=== PATIENT | female | born 1935 | race Caucasian/White ===

== ENCOUNTER 2016-11-22 20:45 | Emergency (ER) | payer MEDICARE ==
[~2016-11-22 20:45] MED LIST: ACIPHEX20 MG; ADVAIR 1001 DISK W/D; ALBUTEROL0.83 MG/ML; ALBUTEROL17 GM; ALBUTEROL17 GM INH; ANTIBIOTIC; ATACAND4 MG; ATARAX10 MG PO; ATIVAN0.5 MG PO; AUGMENTIN 875-11 TAB PO; CALCIUM + D T1 UDTAB PO; CALCIUM 600 MG1 EACH PO; CALCIUM 600 W/V1 TAB; CARDIZEM CD180 MG; CARDIZEM CD180 MG PO; CARDIZEM120 MG; CARDIZEM120 MG PO; COMBIVENT1 PUFF INH; COUMADIN2.5 MG; COUMADIN2.5 MG PO; COUMADIN5 M1 PO; COUMADIN5 MG; COUMADIN5 MG PO; DUONEB 2.5-0.5 M3 ML; ENALAPRIL MALEA10 MG; ENOXAPARIN; FORADIL12 MCG; FOSAMAX70 MG; FOSAMAX70 MG PO; MACROBID 100 M100 MG PO; MILK OF MA400 MG/5 M PO; MUCINEX600 MG PO; NASONEX17 GM; OMEPRAZOLE20 MG PO; OMNICEF300 MG PO; PAXIL10 MG; PAXIL20 MG PO; PAXIL30 MG PO; PAXIL40 MG PO; PHENERGAN W/CO120 ML PO; PREDNISONE1 MG; PREDNISONE10 MG; PREDNISONE10 MG PO; PREDNISONE5 MG; PRILOSEC20 MG PO; SPIRIVA18 MCG; SUDAFED60 MG/TAB PO; SYMBICORT 160-4.6 GM IH; SYMBICORT 80/10.2 GM IH; TOPROL XL25 MG; TRIMETHOPRIM100 MG PO; TYLENOL EXTRA500 MG; TYLENOL W/CODEI1 TA; TYLENOL W/CODEI1 TAB; TYLENOL325 MG PO; VITAMIN C1000 MG; XANAX0.5 MG PO; XOPENEX0.31 MG/3; ZOFRAN4 M1 PO; ZOFRAN4 MG PO
[2016-11-22 22:05] LABS: BASO % 0.6 % (0-2); BASO ABSOLUTE COUNT 0.1 tho/cmm (0.0-0.2); EOS % 2.7 % (0-7); EOSINOPHIL ABSOLUTE COUNT 0.2 tho/cmm (0.0-0.7); HCT-HEMATOCRIT 40.8 % (34.0-49.0); HGB-HEMOGLOBIN 13.6 gm/dl (12.0-15.5); IMMATURE GRANULOCYTES ABSOLUTE 0.01 tho/cmm (0-0.03); IMMATURE GRANULOCYTES PERCENT 0.1 % (0-0.3); LYMPH % 27.2 % (20-45); LYMPH ABSOLUTE COUNT 2.2 tho/cmm (0.8-4.5); MCH (MEAN CORPUSCULAR HGB) 29.2 pg (28.0-32.0); MCHC MEAN CORPUSCULAR HGB CONC 33.3 % (32.0-36.0); MCV (MEAN CELL VOLUME) 87.7 fl (82.0-96.0); MEAN PLATELET VOLUME 8.8 cmc (9.4-12.4); MONO % 8.2 % (0-12); MONOCYTE ABSOLUTE COUNT 0.7 tho/cmm (0.0-1.2); NEUTROPHIL ABSOLUTE COUNT 4.9 tho/cmm (1.6-8.0); NEUTROPHIL-AUTOMATED 4.9 tho/cmm (1.6-8.0); NEUTROPHILS % 61.2 % (40-80); PLATELET COUNT 327 tho/cmm (150-450); RED BLOOD COUNT 4.65 mil/cmm (4.00-5.20); RED CELL DISTRIBUTION WIDTH 15.1 % (12.4-16.4); WHITE BLOOD COUNT 8.1 tho/cmm (4.0-10.0)
[2016-11-22 22:13] LABS: INR 5.6 INR (0.9-1.1)
[2016-11-22 22:18] LABS: ALB/GLOB RATIO 0.8 (0.8-2.0); ALBUMIN 3.3 g/dl (3.5-5.0); ALKALINE PHOSPHATASE 82 U/L (33-138); ALT/SGPT 34 U/L (12-78); ANION GAP 10 mmol/L (0-20); AST/SGOT 32 U/L (10-40); BILIRUBIN,TOTAL 0.2 mg/dl (0-1.5); BLOOD UREA NITROGEN 14 mg/dl (6-24); CALCIUM 8.6 mg/dl (8.5-10.5); CARBON DIOXIDE-VENOUS 31 mmol/L (22-32); CHLORIDE 100 mmol/l (96-110); CREATININE 1.25 mg/dl (0.50-1.10); GLUCOSE 108 mg/dL (70-110); SODIUM 136 mmol/L (135-145); eGFR VALUE FOR BLACK 46 mL/Min
[2016-11-23 05:18] LABS: URINE BILIRUBIN NEGATIVE (NEG); URINE BLOOD MODERATE (NEG); URINE GLUCOSE (UA) NEGATIVE (NEG); URINE KETONE SMALL (NEG); URINE LEUKOCYTE ESTERASE POSITIVE (NEG); URINE NITRITE NEGATIVE (NEG); URINE PROTEIN NEGATIVE (NEG); URINE SPECIFIC GRAVITY 1.005 (1.003-1.030)
[2016-11-23 05:20] LABS: URINE APPEARANCE HAZY; URINE COLOR YELLOW
[2016-11-23 05:26] LABS: URINE BACTERIA 3+; URINE EPITHELIAL CELLS RARE /[HPF] (0-10)
[2016-11-23] MEDS ORDERED: ZOFRAN ODT4 MG PO (06:10)
== END 2016-11-23 06:28 ==
LOC: EDMED 20:45
PROVIDERS: Emergency Medicine Emergency Medical Services
DX: K59.00 Constipation, unspecified (principal); R79.1 Abnormal coagulation profile; J44.9 Chronic obstructive pulmonary disease, unspecified; Z90.49 Acquired absence of other specified parts of digestive tract; Z90.710 Acquired absence of both cervix and uterus
CPT/HCPCS: J2405; J2765; J7030; Q9967